=== PATIENT | female | born 1935 | race African-American/Black ===

== ENCOUNTER → 2021-10-19 | Outpatient (CLI) | payer MEDICARE, MEDICAID ==
[2021-10-19 11:02] LABS: BASOPHILS % 0.8 % (0.0-2.0); EOSINOPHILS % 1.8 % (0.0-5.0); HEMATOCRIT. 35.8 % (36.0-48.0); HEMOGLOBIN. 11.6 g/dL (12.0-16.0); LYMPHOCYTES % 20.3 % (20.0-50.0); MEAN CORPUSCULAR HEMOGLOBIN 28.6 pg (28.0-32.0); MEAN CORPUSCULAR VOLUME 87.9 fL (81.0-99.0); MONOCYTES % 11.4 % (2.0-8.0); NEUTROPHILS % 65.7 % (40.0-76.0); PLATELET 164 x1000/uL (130-400); RED BLOOD CELL COUNT 4.07 mill/uL (4.2-5.4); RED CELL DISTRIBUTION WIDTH 23.1 % (11.6-14.6)
[2021-10-19 11:09] LABS: INR 1.1; PROTHROMBIN TIME 11.4 sec (9.6-11.0)
[2021-10-19 12:29] LABS: PLATELET ESTIMATE NORMAL
== END | disposition home or self-care (01) ==
LOC: RAD 10:21
PROVIDERS: ATTEND Internal Medicine Nephrology
DX: J98.11 Atelectasis (principal); I51.7 Cardiomegaly; N18.6 End stage renal disease; R06.02 Shortness of breath
CPT/HCPCS: 36415; 71045; 80048; 85025